=== PATIENT | male | born 1960 | race Caucasian/White ===

== ENCOUNTER → 2018-06-30 12:28 | Outpatient (CLI) | payer BC, SELFPAY ==
[2018-06-30 12:41] LABS: Basophils % 0.4 % (0.1-2.0); Eosinophils # 0.3 K/mm3 (0.0-0.4); Hematocrit 49.6 % (42.0-52.0); Hemoglobin 16.8 g/dL (14.1-18.0); Lymphocytes # 2.4 K/mm3 (0.7-4.5); Lymphocytes % 36.2 K/mm3 (10-50); Mean Corpuscular HGB Conc 33.8 g/dL (31.8-35.4); Mean Corpuscular Hemoglobin 29.6 pg (27.0-31.2); Mean Corpuscular Volume 87.6 fl (80-94); Mean Platelet Volume 8.2 fl (7.4-10.4); Monocytes # 0.3 K/mm3 (0.1-1.0); Monocytes % 5.2 % (1.7-9.3); Neutrophils # 3.5 K/mm3 (1.8-7.8); Neutrophils % 54.1 % (37.0-80.0); Platelet Count 195 K/mm3 (142-424); Red Blood Count 5.66 M/mm3 (4.60-6.20); Red Cell Distribution Width 14.1 % (11.5-17.5); White Blood Count 6.5 K/mm3 (4.8-10.8)
[2018-06-30 13:47] LABS: Alanine Aminotransferase 37 U/L (12-78); Albumin/Globulin Ratio 1.1 (1.1-1.8); Alkaline Phosphatase 72 U/L (46-116); Aspartate Amino Transferase 16 U/L (15-37); Blood Urea Nitrogen 14 mg/dL (7-18); Carbon Dioxide 28 mmol/L (21.0-32.0); Chloride 106 mmol/L (98-107); Creatinine,Serum 0.93 mg/dL (0.70-1.30); Estimated Glomerular Filt Rate 84 ml/min (>60); GFR (African American) 102 ML/MIN (>60); Globulin 3.6 gm/dl (1.3-3.2); Glucose 125 mg/dL (74-106); Sodium 144 mmol/L (136-145); Total Protein,Serum 7.6 gm/dL (6.4-8.2)
== END ==
PROVIDERS: PCP Family Medicine; Visit Provider Surgery
DX: K80.20 Calculus of gallbladder without cholecystitis without obstruction (principal); Z01.818 Encounter for other preprocedural examination
CPT/HCPCS: 36415; 80053; 85025; 93005